=== PATIENT | female | born 2000 | race Caucasian/White ===

== ENCOUNTER 2025-06-01 09:41 | Emergency (ER) | payer BC ==
[~2025-06-01] VITALS: Ht 172.7 cm; Wt 64.2 kg
[2025-06-01 09:44] VITALS: TEMP 98.5
[2025-06-01 10:11] LABS: MEAN PLATELET VOLUME 7.3 FL (7.4-10.4); RED CELL DISTRIBUTION WIDTH 12.7 % (11.5-14.5)
[2025-06-01 10:29] LABS: CREATININE 0.79 MG/DL (0.40-0.90); TOTAL CARBON DIOXIDE 25.3 MMOL/L (24-32); eCRCL 111 ML/MIN; eGFR 89 ML/MIN
[2025-06-01 11:24] VITALS: BP 121/86; PULSE 85; RESP 16; O2SAT 99
[2025-06-01 11:49] LABS: URINE HCG NEGATIVE (NEG)
[2025-06-01 11:51] LABS: LEUKOCYTE ESTERASE ,URINE NEGATIVE (Neg); NITRITES, URINE NEGATIVE (Neg); OCCULT BLOOD,URINE NEGATIVE (Neg)
[2025-06-01 11:52] LABS: UA COLLECTION TYPE NON-SPECIFIED
--- NOTE | 2025-06-01 12:03 | Physician Documentation ---
History of Present Illness ~ Chief Complaint: Abdominal Pain Stated Complaint: ABD PAIN Time Seen by MD: 11:43 HPI This is a 24-year-old female who presents with two weeks of suprapubic abdominal pain described as cramping, patient reports pain is similar to menstrual cramps, patient became concerned today due to developing pain radiating to her left shoulder. Patient additionally reports that she has had vaginal bleeding for the past month, patient reports that the bleeding has been typically as much as her normal menstrual period. Patient reports no fever, chills, or other systemic symptoms. Reports no vomiting or diarrhea though does report some nausea. Last Menstrual Period: May 07, 2025 Medication Reconciliation Allergies: Coded Allergies: Penicillins (Unverified Allergy, Unknown, 06/01/25) amoxicillin (Unverified Allergy, Unknown, 06/01/25) clavulanic acid (Unverified Allergy, Unknown, 06/01/25) Scheduled Ibuprofen (Ibuprofen), 1 TAB PO Q8H Past Medical History Past Medical History: No Pertinent History Last Menstrual Period: May 07, 2025 Review of Systems ROS Suprapubic abdominal cramping as stated above in the HPI, otherwise all systems are reviewed and negative. Physical Exam Vital Signs: Temperature: 98.5, Source: Temporal, Heart Rate: 85, Respiratory Rate: 16, BP: 121/86, Pulse Oximetry: 99, Weight: 64.200 Oxygen Flow Rate: 0 Physical Exam VITALS: Reviewed and as above. GENERAL: Alert, nontoxic appearing, no apparent distress. RESPIRATORY: No increased work of breathing, no respiratory distress, speaking in full clear sentences, clear lung sounds in all ball CV: Regular rate and rhythm no murmur BACK: No CVA tenderness GI: Suprapubic abdominal tenderness otherwise abdomen is soft, nondistended, nontender, no rebound, no guarding, bowel sounds present. No abdominal ecchymosis or erythema Progress Results/Orders Results/Orders Orders - CELIO BURK Ultrasound Pelvis W/Orwo Dplx (06/01/25 ) Completed Orders - CELIO BURK Ultrasound Pelvis W/Orwo Dplx (06/01/25 ) Ibuprofen Tablet (Motrin Tablet) (06/01/25 13:30) Vital Signs 06/01/25 06/01/25 06/01/25 09:44 09:52 11:24 Temp 98.5 Pulse 119 85 Resp 18 16 16 B/P (MAP) 137/77 121/86 (98) Pulse Ox 98 99 O2 Flow Rate 0 0 Laboratory Tests Test 06/01/25 10:02 06/01/25 11:15 White Blood Count 9.7 Red Blood Count 4.42 Hemoglobin 13.1 Hematocrit 38.3 Mean Corpuscular Volume 86.7 Mean Corpuscular Hemoglobin 29.5 Mean Corpuscular Hemoglobin Concent 34.0 Red Cell Distribution Width 12.7 Platelet Count 375 Mean Platelet Volume 7.3 L Neutrophils (%) (Auto) 74.6 Lymphocytes (%) (Auto) 14.3 L Monocytes (%) (Auto) 10.2 Eosinophils (%) (Auto) 0.5 Basophils (%) (Auto) 0.4 Neutrophils # (Auto) 7.2 Lymphocytes # (Auto) 1.4 Monocytes # (Auto) 1.0 H Eosinophils # (Auto) 0.0 Basophils # (Auto) 0.0 CBC Comment Sodium Level 138 Potassium Level 4.1 Chloride Level 103 Carbon Dioxide Level 25.3 Anion Gap 10 Blood Urea Nitrogen 6 L Creatinine 0.79 Estimated GFR/1.73 m2 89 BUN/Creatinine Ratio 7.6 L Glucose Level 96 Calcium Level 9.1 Total Bilirubin 0.6 Aspartate Amino Transf (AST/SGOT) 13 Alanine Aminotransferase (ALT/SGPT) 16 Alkaline Phosphatase 99 Total Protein 7.8 Albumin 3.3 L Globulin 4.5 H Albumin/Globulin Ratio 0.7 L Lipase 24 Chemistry Comments Urine Specimen Description Non-specified Urine Color Yellow Urine Clarity Slightly cloudy Urine pH 7.0 Urine Specific [place] 1.020 Urine Protein Trace Urine Glucose (UA) Negative Urine Ketones Negative Urine Occult Blood Negative Urine Nitrite Negative Urine Bilirubin Negative Urine Urobilinogen 1.0 Urine Leukocyte Esterase Negative Urine RBC 0-2 Urine WBC 0-4 Urine Squamous Epithelial Cells Moderate Urine Transitional Epithelial Cells Moderate Urine Bacteria Few Urine Culture Indicated Not ind Volume Urine Centrifuged 10 ml Urine HCG, Qualitative Negative Urine Comment EKG/XRAY/CT/US/VASC/MRI Ultrasound : Impression INDICATION: Suprapubic abdominal pain x1 month TECHNIQUE: Multiple real-time grayscale transabdominal sonographic images along with color and duplex Doppler of the uterus and ovaries were obtained. COMPARISON: None FINDINGS: The uterus measures 5.4 x 3.0 x 4.4 cm. The endometrial stripe measures 0.5 cm. Right ovary measures 1.8 x 1.9 x 1.6 cm with normal Doppler color flow Left ovary measures 2.4 x 2.1 x 2.6 cm with normal Doppler color flow IMPRESSION: 1. Grossly unremarkable pelvic ultrasound. Electronically Signed by:ENZO LEMOS MD Date & Time: 06/01/251316 Dictated by: ENZO LEMOS MD Dictation date and time: 06/01/251316 Medical Decision Making Findings This 24-year-old female presented with two weeks of lower abdominal cramping and one-month of vaginal bleeding, physical exam with mild tenderness to palpation suprapubic area was otherwise benign without other findings, patient was hemodynamically stable, lab work did not demonstrate evidence of anemia, metabolic derangement, or electrolyte abnormality. Urinalysis did not demonstrate evidence of or urinary tract infection. Pelvic ultrasound obtained and did not demonstrate evidence of ovarian torsion, abscess, or other intra pelvic abnormality. History consistent with abnormal uterine bleeding, discussed with the patient the need for follow up with linter drier operator, patient reports that she would be able to facilitate this outpatient. As patient is otherwise well-appearing she is appropriate for outpatient follow up. Patient provided home care instructions, return to care precautions and follow up instructions which he verbalized understanding of. Urinary Diff Dx:Considerations: Include: , Appendicitis, Ectopic preg jonathan, Intrauterine , Musculoskeletal pain, Ovarian torsion, PID, Pyelonephritis, Strain, Urinary Obstruction, Urolithiasis, Urinary retention, UTI Genital Diff Dx:Considerations: Include: Menstrual bleeding, Departure Disposition: 01 HOME / SELF CARE / HOMELESS Impression: Primary Impression: Abnormal uterine bleeding Condition: Improved Discharge Instructions: Abnormal Uterine Bleeding Additional Instructions: Please take the ibuprofen as prescribed this medication may help reduce the amount of uterine bleeding you are experiencing and should help with your abdominal cramping. Please follow up as soon as possible with a linter drier operator. Please follow up with your primary care provider in the next few days. Please return to the emergency department for any new or worsening concerning symptoms including but not limited to worsening bleeding, worsening abdominal pain, or if you develop a fever over 100.4 that does not lower with ibuprofen or Tylenol. Please take ibuprofen with food to avoid stomach upset. Referrals: NO PRIMARY CARE PROVIDER (PCP) Prescriptions Ibuprofen (Ibuprofen) 800 Mg Tablet 1 TAB PO Q8H for pain for 10 Days, #30 TAB 0 Refills Prov: CELIO BURK 06/01/25 Education Educated: Patient Educated regarding: diagnosis, treatment, prognosis, need for follow up Signature Scribe Signature: No scribe Attestation: The note accurately reflects work and decisions made by me.LORENZO Maddox 06/01/25 22:34 CELIO BURK Jun 01, 2025 12:03
[2025-06-01 12:09] LABS: SQUAMOUS EPITHELIAL CELL,UR MODERATE /LPF (FEW)
--- NOTE | 2025-06-01 13:20 | RADIOLOGY REPORT ---
INDICATION: Suprapubic abdominal pain x1 month TECHNIQUE: Multiple real-time grayscale transabdominal sonographic images along with color and duplex Doppler of the uterus and ovaries were obtained. COMPARISON: None FINDINGS: The uterus measures 5.4 x 3.0 x 4.4 cm. The endometrial stripe measures 0.5 cm. Right ovary measures 1.8 x 1.9 x 1.6 cm with normal Doppler color flow Left ovary measures 2.4 x 2.1 x 2.6 cm with normal Doppler color flow IMPRESSION: 1. Grossly unremarkable pelvic ultrasound.
[2025-06-01] MEDS ORDERED: IBUP-1986 PO (13:34)
[2025-06-01] MEDS: ibuprofen tablet 400 MG TABLET PO ONE (14:13)
== END 2025-06-01 14:16 | disposition home or self-care (01) ==
LOC: ER 09:42
DX: N93.9 Abnormal uterine and vaginal bleeding, unspecified (principal); Z88.0 Allergy status to penicillin
CPT/HCPCS: 36415; 76856; 80053; 81001; 81025; 83690; 85025; 93976; 99284